=== PATIENT | male | born 1960 | race American Indian/Alaskan Native ===

== ENCOUNTER 2019-04-19 18:18 | Emergency (ER) | payer SELFPAY | END 2019-04-19 19:00 | disposition left against medical advice (07) | LOC: ED 18:18 | DX: R03.0 Elevated blood-pressure reading, without diagnosis of hypertension (principal); Z53.21 Procedure and treatment not carried out due to patient leaving prior to being seen by health care provider ==

== ENCOUNTER 2019-04-20 08:14 | Emergency (ER) | payer OTHER ==
[2019-04-20 08:22] VITALS: BP 174/99
--- NOTE | 2019-04-20 09:06 | Emergency Department Report ---
ED General Adult HPI - General Chief complaint: Medical Clearance Stated complaint: HBP Time Seen by Provider: 04/20/19 08:33 Source: patient, RN notes reviewed, old records reviewed Mode of arrival: Ambulatory Limitations: No Limitations - History of Present Illness Initial comments: This is a pleasant 58-year-old gentleman who is not known to this provider previously. He does not have a local primary care doctor and last saw a primary care physician 2 years ago. He does not have any chronic medical conditions that he is aware of. He reports that 6 months ago he had a preemployment medical screening exam, and was told that he had elevated blood pressure. He went to the dentist yesterday, reportedly felt very anxious, and was instructed to come to an emergency room for evaluation of blood pressure. He denies physical pain at this time. He has no medical complaints at this time. Improves with: none Worsens with: none - Related Data Previous Rx's Medication Instructions Recorded Last Taken Type Cyclobenzaprine [Flexeril] 10 mg PO TID PRN #15 tablet 01/26/16 Unknown Rx Ibuprofen [Motrin] 800 mg PO Q8HR PRN #15 tablet 01/26/16 Unknown Rx Allergies Allergy/AdvReac Type Severity Reaction Status Date / Time No Known Allergies Allergy Unverified 04/19/19 18:22 ED Review of Systems ROS: Stated complaint: HBP Other details as noted in HPI Comment: All other systems reviewed and negative ED Past Medical Hx - Past Medical History Previous Medical History?: No - Surgical History Past Surgical History?: No - Social History Smoking Status: Current Every Day Smoker Substance Use Type: None - Medications Home Medications: Home Medications Medication Instructions Recorded Confirmed Last Taken Type Cyclobenzaprine [Flexeril] 10 mg PO TID PRN #15 tablet 01/26/16 Unknown Rx Ibuprofen [Motrin] 800 mg PO Q8HR PRN #15 tablet 01/26/16 Unknown Rx ED Physical Exam - General Limitations: No Limitations General appearance: alert, in no apparent distress - Head Head exam: Present: atraumatic, normocephalic - Eye Eye exam: Present: normal appearance, EOMI. Absent: nystagmus - ENT ENT exam: Present: normal exam, normal orophraynx, mucous membranes moist, normal external ear exam - Neck Neck exam: Present: normal inspection, full ROM. Absent: tenderness, meni ngismus - Respiratory Respiratory exam: Present: normal lung sounds bilaterally. Absent: respiratory distress - Cardiovascular Cardiovascular Exam: Present: regular rate, normal rhythm, normal heart sounds. Absent: bradycardia, tachycardia, irregular rhythm, systolic murmur, diastolic murmur, rubs, gallop - GI/Abdominal GI/Abdominal exam: Present: soft. Absent: distended, tenderness, guarding, rebound, rigid, pulsatile mass - Rectal Rectal exam: Present: deferred - Extremities Exam Extremities exam: Present: normal inspection, full ROM, other (2+ pulses noted in the bilateral upper extremities. There is no long bony tenderness. The pelvis is stable. Muscular compartments are soft.). Absent: pedal edema - Back Exam Back exam: Present: normal inspection, full ROM. Absent: CVA tenderness (R), CVA tenderness (L), paraspinal tenderness, vertebral tenderness - Neurological Exam Neurological exam: Present: alert, normal gait, other (there is no facial droop. The tongue is midline. Extraocular movements are intact bilaterally. Patient speaking in full complete sentences. Shoulder shrug is intact bilaterally. Hearing is grossly intact bilaterally. Visual acuity intact to finger counting and color perception at a close distance. 5/5 strength 4 extremities. Sensation intact to light touch in 4 extremities.). Absent: motor sensory deficit - Psychiatric Psychiatric exam: Present: anxious - Skin Skin exam: Present: warm, dry, intact, normal color. Absent: rash ED Course Vital Signs 04/20/19 08:21 Temperature 97.6 F Pulse Rate 82 Respiratory 16 Rate Blood Pressure 174/99 O2 Sat by Pulse 99 Oximetry ED Medical Decision Making - Medical Decision Making Vital Signs 04/20/19 08:21 Temperature 97.6 F Pulse Rate 82 Respiratory 16 Rate Blood Pressure 174/99 O2 Sat by Pulse 99 Oximetry Differential diagnosis, including not limited to: Hypertension, elevated blood pressure, general medical examination Assessment and plan: 58-year-old gentleman with asymptomatic elevated blood pressure. He does not carry a formal diagnosis of hypertension. Please reference the [employer] clinical policy on hypertension which is not acutely symptomatic. We discussed need for follow up with outpatient primary care doctor, and we recommended diet and lifestyle modifications. The patient is agreeable to this plan of care. He does not appear to have an emergent medical condition at this time. Critical care attestation.: If time is entered above; I have spent that time in minutes in the direct care of this critically ill patient, excluding procedure time. ED Disposition Clinical Impression: Elevated blood pressure reading Disposition: DC-01 TO HOME OR SELFCARE Is pt being admited?: No Does the pt Need Aspirin: No Condition: Stable Additional Instructions: Please follow-up with any of the listed primary care physician's within the next 4-6 weeks. Recommend modification of diet and lifestyle. Recommend physical activity on a regular basis as tolerated, avoid consumption of simple carbohydrates, sugary drinks, processed foods. Eat plenty of lean protein, vegetables and fiber. Avoid consumption of caffeine and stimulants. Please return to emergency room right away with new, worsened or different symptoms, or symptoms not present on the initial emergency room evaluation. Referrals: CLINTON HUNTER MD [Staff Physician] - 3-5 Days CARLA IDA MD [Staff Physician] - 3-5 Days [facility] [Provider Group] - 3-5 Days [facility] [Provider Group] - 3-5 Days
== END 2019-04-20 09:14 | disposition home or self-care (01) ==
LOC: ED 08:14
DX: I10 Essential (primary) hypertension (principal); Z79.1 Long term (current) use of non-steroidal anti-inflammatories (NSAID); F17.200 Nicotine dependence, unspecified, uncomplicated
CPT/HCPCS: 99282